=== PATIENT | male | born 1980 | race Caucasian/White ===

== ENCOUNTER 2021-11-23 06:41 | Day surgery (SDC) | payer OTHER ==
[~2021-11-23] VITALS: Ht 154.9 cm; Wt 90.5 kg
[~2021-11-23 06:41] MED LIST: MONT-35 PO; SODIUM CHLORIDE 0.9% 1,000 ML IV ONE
[2021-11-23] MEDS ORDERED: LIDOCAINE 2% 5 ML JELLY TP ONE (06:42)
[2021-11-23] MEDS ORDERED: LIDOCAINE 4% 50 ML SOLUTION TP ONE (06:42)
[2021-11-23] MEDS ORDERED: BENZOCAINE 20% 50 MCG/SPRAY 57 GM TP ONE (06:42)
[2021-11-23] MEDS ORDERED: SODIUM CHLORIDE 0.9% 1,000 ML ONE (06:48)
[2021-11-23 07:20] LABS: COVID AG,FIA SOURCE NASAL SWAB
[2021-11-23] MEDS ORDERED: MIDAZOLAM HCL 5 MG/ML VIAL ONE (07:26)
[2021-11-23] MEDS ORDERED: FentaNYL CITRATE PF 100 MCG/2 ML VIAL ONE (07:26)
[2021-11-23] MEDS ORDERED: MethylPREDNISolone SOD SUCC 125 MG/2 ML VIAL IVP ONE (09:45)
[2021-11-23] MEDS ORDERED: MethylPREDNISolone SOD SUCC 125 MG/2 ML VIAL ONE (10:23)
[2021-11-23] MEDS ORDERED: OXYGEN THERAPY IH SCH (20:00)
== END 2021-11-23 14:05 | disposition home or self-care (01) ==
LOC: SURGERY 06:41
PROVIDERS: ATTEND Internal Medicine Critical Care Medicine
DX: J38.4 Edema of larynx (principal); B37.0 Candidal stomatitis; J45.909 Unspecified asthma, uncomplicated; Z98.890 Other specified postprocedural states; Z88.8 Allergy status to other drugs, medicaments and biological substances; Z79.899 Other long term (current) drug therapy
CPT/HCPCS: 31623; 31624; 71045; 71250; 87015; 87070; 87101; 87206; 87220; 87426; 88112; 88184; 88185; 88312; C9803; J2250; J2930; J3010; J7030; Z7610

== ENCOUNTER 2024-12-10 07:10 | Day surgery (SDC) | payer OTHER ==
[~2024-12-10] VITALS: Ht 160 cm; Wt 90.9 kg
[~2024-12-10 07:10] MED LIST changes: -SODIUM CHLORIDE 0.9% 1,000 ML IV ONE; +SODIUM CHLORIDE 0.9% 1,000 ML ONE
[2024-12-10] MEDS ORDERED: LIDOCAINE 2% 11 ML JELLY TP ONE (07:11)
[2024-12-10] MEDS ORDERED: LIDOCAINE 4% 50 ML SOLUTION TP ONE (07:11)
[2024-12-10] MEDS ORDERED: BENZOCAINE 20% 50 MCG/SPRAY 57 GM TP ONE (07:11)
[2024-12-10] MEDS ORDERED: ALBUTEROL SULFATE 2.5 MG/0.5 ML NEB SOLUTION NEB ONE (07:11)
[2024-12-10] MEDS ORDERED: MIDAZOLAM HCL 2 MG/2 ML VIAL ONE (08:07)
[2024-12-10] MEDS ORDERED: FentaNYL CITRATE PF 100 MCG/2 ML VIAL ONE (08:07)
[2024-12-10] MEDS: SODIUM CHLORIDE 0.9% 1,000 ML IV ONE (08:09)
[2024-12-10] MEDS ORDERED: CYAN-53 PO (08:37)
[2024-12-10] MEDS ORDERED: AZEL23SP2 NASAL (08:37)
[2024-12-10] MEDS ORDERED: ALBU18HF12 IH (08:37)
[2024-12-10] MEDS ORDERED: LINA145C PO (08:37)
[2024-12-10] MEDS ORDERED: APIX5TAB PO (08:37)
[2024-12-10] MEDS ORDERED: BACL10TA PO (08:37)
[2024-12-10] MEDS ORDERED: ACET-3385 PO (08:37)
[2024-12-10] MEDS ORDERED: IPRA0.2S49 NEB (08:37)
[2024-12-10] MEDS ORDERED: SOLI10TA7 PO (08:37)
[2024-12-10] MEDS ORDERED: FAMO20 PO (08:37)
[2024-12-10] MEDS ORDERED: CHOL200074 PO (08:37)
[2024-12-10] MEDS ORDERED: [UNRECOGNIZED DRUG - CODE] PO (08:37)
[2024-12-10] MEDS ORDERED: FURO20TA4 PO (08:37)
[2024-12-10] MEDS ORDERED: PRED-729 PO (08:37)
[2024-12-10] MEDS ORDERED: CETI10TA58 PO (08:37)
[2024-12-10] MEDS ORDERED: LACT10SO85 PO (08:37)
[2024-12-10] MEDS ORDERED: FLUT1BLS IH (08:37)
[2024-12-10] MEDS ORDERED: POTASSIUM PO (08:37)
[2024-12-10 09:25] VITALS: PULSE 104; RESP 16; O2SAT 100
[2024-12-10] MEDS ORDERED: MethylPREDNISolone SOD SUCC 125 MG/2 ML VIAL ONE (09:51)
[2024-12-10] MEDS: MethylPREDNISolone SOD SUCC 125 MG/2 ML VIAL IVP ONE (09:58)
[2024-12-10] MEDS ORDERED: HYDROCORTISONE SOD SUCC 100 MG/2 ML VIAL IVP ONE (10:00)
== END 2024-12-10 12:45 | disposition home or self-care (01) ==
LOC: SURGERY 07:10
PROVIDERS: ATTEND Internal Medicine Critical Care Medicine
DX: R05.3 Chronic cough (principal); J38.4 Edema of larynx; B37.0 Candidal stomatitis; Z98.890 Other specified postprocedural states; K76.0 Fatty (change of) liver, not elsewhere classified
CPT/HCPCS: 31623; 87206; 87101; 87220; 87070; 31624; 94640; 71045; 87015; J3010; J1720; J2250; J2919; J7030; J7613; Z7610